=== PATIENT | male | born 1985 | race American Indian/Alaskan Native ===

== ENCOUNTER 2025-01-21 16:47 | Emergency (ER) | payer MEDICAID, SELFPAY ==
[2025-01-21 16:54] VITALS: BP 158/91; PULSE 64; RESP 19; TEMP 37.1; O2SAT 97; BMI 26.4
--- NOTE | 2025-01-21 17:27 | XR_ITS ---
Examination: Hand, right 3 views Technique: Hand AP, oblique, lateral 3 views Date and time of exam: January 21, 2025, 1545 hours INDICATIONS: Laceration to the third digit today, pain FINDINGS: Large soft tissue defect at the distal interphalangeal joint third digit No fracture No opaque foreign body IMPRESSION: No opaque foreign body
--- NOTE | 2025-01-21 17:27 | XR_ITS ---
Right hand third digit 2 views TECHNIQUE: AP lateral right hand third digit 2 views Date and time: January 21, 2025, 1746 hours INDICATIONS: Chainsaw injury to the hand today third digit pain. FINDINGS: Soft tissue defect third digit distally No fracture No opaque foreign body IMPRESSION: No opaque foreign body
--- NOTE | 2025-01-21 17:28 | PD.EDWOUND ---
ED Wound/Laceration-RME/HPI General Chief Complaint: Wound/Laceration Stated Complaint: FINGER LAC Time Seen by Provider: 01/21/25 17:26 Arrival date/time: 01/21/25 16:47 RME / HPI RME / HPI narrative: DR. ALLEN MAIN ED EVALUATION: 39-year-old male with no significant past medical history presents to the Emergency Department for evaluation of a right third finger laceration sustained accidentally while using a chainsaw. No other injuries noted. Allergic to morphine. Related Data Previous Rx's ?Medication ?Instructions ?Recorded ibuprofen 600 mg tablet 600 mg PO Q8H PRN pain #20 tabs 01/02/24 cephalexin 500 mg capsule 500 mg PO TID #21 caps 01/21/25 Allergies Allergy/AdvReac Type Severity Reaction Status Date / Time morphine Allergy Severe Hives Verified 01/02/24 14:16 Review of Systems Review of Systems Systems Reviewed: All systems reviewed, normal except as documented Past Medical History Past Medical History MUSCULOSKELETAL: Positive Musculoskeletal Disorders and Fractures (knee, wrist, fingers) OTHER HISTORY: Positive Chicken Pox Social History SMOKING STATUS: Never smoker SUBSTANCE USE: does not use ED Exam Narrative Physical exam: GENERAL APPEARANCE: Alert and oriented x4, in mild distress secondary to pain VITALS: All vitals were reviewed and the pulse ox is 97% on room air, which is normal according to my interpretation. HEENT: Normocephalic, atraumatic; pupils equal, round, reactive to light; EOMI; mucous membranes pink, moist; oropharynx clear NECK: Supple LUNGS: CTABL; no wheezes, no rales, no rhonchi HEART: Regular rate, regular rhythm; normal S1, S2; no murmurs ABDOMEN: non distended; normal BS; soft, no tenderness, no guarding, no rebound; no masses, no organomegaly, no hernia BACK: no CVA tenderness EXTREMITIES: Right 3rd finger with irregular, macerated laceration appearing as two separate but connected wounds. Rest of extremities normal. NEUROLOGIC: awake; alert and oriented x4; cranial nerves II-XII grossly intact; no focal sensory or motor deficits PSYCHIATRIC: appropriate mood and affect SKIN: warm, dry, normal color; no rashes Course Course Course Narrative: Patient care transferred to [facility] pending wound irrigation, in depth exam, wound repair, and final disposition Quality Measures none Orders Category Date Time Status XR finger RT min 2V Stat Exams 01/21/25 17:27 Completed XR hand comp RT min 3V Stat Exams 01/21/25 17:27 Completed Lidocaine 1% Vial 20 ml [Xylocaine 1% 20 ML] Med 01/21/25 17:28 Discontinued 10 ml INFL X1 ONE TET,DIP/PERT AC (Adult)-Tdap [Boostrix Adult (Tdap) Med 01/21/25 18:01 Discontinued Vacc] 0.5 ml IMI .ONCE ONE Reevaluation(s) Reevaluation #1: Patient signed out to Dragan Suarez, he will follow up on closing the wound and disposition. Time: 17:49 Vital Signs Vital signs: Vital Signs Temperature 98.7 F 01/21/25 16:54 Pulse Rate 64 01/21/25 16:54 Respiratory Rate 19 01/21/25 16:54 Blood Pressure 158/91 H 01/21/25 16:54 Pulse Oximetry (%) 97 01/21/25 16:54 Oxygen Delivery Method Room Air 01/21/25 16:54 Wound / Laceration MDM Narrative MDM Narrative:: Emili Salas am scribing for and in the presence of Dr. Allen. Patient data External records reviewed:: [facility] previous records Clinical information provided by:: patient Social determinants that could affect healthcare access:: none Patient has the following chronic illnesses:: Denies any PMHx, surgeries, or daily medications. Allergies to morphine. How is presenting disease/condition affected by chronic disease/condition?: no chronic disease Evaluation data The following diagnostics were reviewed and interpreted by me:: radiology exam(s) Lab and/or radiology exams considered but not ordered:: none Interpretation Summary: Pending at time of signout. Medications / Prescriptions Medications or Prescriptions considered but not ordered:: none Medication administrations:: Medication Administration History Discontinued Medications Diphtheria/Tetanus/Acell Pertussis (Diphth,Pertuss(Acell),Tet Vac 0.5 Ml Syr- Adult) 0.5 ml IMi .ONCE ONE Stop: 01/21/25 18:02 Last Admin: 01/21/25 18:25 Dose: 0.5 ml Documented By: PETAR Lidocaine HCl (Lidocaine Hcl 1% 20 Ml Vial) 10 ml INFL X1 ONE Stop: 01/21/25 17:29 Last Admin: 01/21/25 17:57 Dose: 10 ml Documented By: PETAR Comments: USED BY PROVIDER see above Consultations Consultation(s) initiated? (list below): No Diagnosis Wound Differential Diagnosis: other (Laceration with possible tendon involvement, open fracture, and neurovascular injury.) Most likely diagnosis given after review of the tests above:: See below under clinical impression Admission Indicated Admission indicated?: not indicated Admission Request Was there a request for admission?: No Disposition Plan Disposition Plan: Discharge (Patient signed out to Dragan Suarez, he will follow up on closing the wound and disposition likely discharge.) Discharge Attestation Discharge Attestation: The patient and all family members were given an opportunity to ask questions and understood the discharge instructions. Discharge instructions specifically effects, indications for sooner follow up or return to the emergency department, and the expected course of current diagnosis. Patient condition: Stable Discharge Plan Plan Patient Disposition: HOME (Self Care) Patient condition on transfer: Stable Prescriptions/Referrals Prescriptions/Med Rec: New cephalexin 500 mg capsule 500 mg PO TID Qty: 21 0RF No Action ibuprofen 600 mg tablet 600 mg PO Q8H PRN (Reason: pain) Qty: 20 0RF Referrals: Claire Lee PA-C ([facility]) [Primary Care Provider] - In 1 week ANTOLIN MONTANO [Referring Provider] - In 1 week Problem List Clinical Impression: Finger laceration, Avulsion of skin of finger Patient/Caregiver Discharge Instructions Education Materials: ED Laceration: All Closures Additional Instructions: Take the medications as prescribed until completely gone. Follow-up with Dr. Montano listed above. Keep the dressing clean and dry after the first 3 days change the dressing daily. Avoid any heavy work use of your hand until completely healed. Any signs of infection including redness pus or swelling return to the emergency room for reevaluation. Print Language: Micronesian Stand Alone Forms: Gabrielle Award Info., Work/School Release, Patient Portal Info Letter NAHOMI/ADDIE Supervising Physician YUKI Supervising Physician: Dragan Suarez ENP
[2025-01-21] MEDS: LIDOCAINE HCL 1% 20 ML VIAL 10 ML INFL (17:57)
[2025-01-21] MEDS: DIPHTH,PERTUSS(ACELL),TET VAC 0.5 ML SYR- ADULT IMi (18:25)
--- NOTE | 2025-01-21 18:27 | EDNOTE_ITS ---
<Statement entered by Yumiko Allen MD - 01/22/25 17:55> As co-signing physician, I was present and available for consult prn. I concur with the plan and care as documented by the midlevel provider. Emergency Room Addendum Addendum Narrative: Physical assessment right hand third digit medial to palmar aspect is completely degloved overlying the DIP, full range of motion against resistance flexion and extension cap refill in the tip is less than 2 seconds. Procedure: Laceration repair anesthesia: 1% lidocaine epinephrine 5 mL injected to the base of the medial lateral aspect of the third digit performing a digital block. Site was then assessed there is a small arterial bleeder that was tied off with 5-0 Vicryl without complication. Site was then trimmed of nonviable skin. Single suture of 3-0 Prolene to the medial side of the distal phalanx to approximate a corner of the degloved section which is approximately 1.5 x 1.5 cm. Site was again cleaned, active bleeding was confirmed stopped.. Surgicel was placed over the site bulky dressing. Patient tolerated the procedure well.
== END 2025-01-21 20:50 | disposition home or self-care (01) ==
PROVIDERS: Emergency Provider Emergency Medicine; PCP Nurse Practitioner Family
DX: S61.212A Laceration without foreign body of right middle finger without damage to nail, initial encounter (principal); W45.8XXA Other foreign body or object entering through skin, initial encounter
CPT/HCPCS: 12001; 73130; 73140; 90471; 90715; 99282; J3490

== ENCOUNTER → 2025-02-06 | Outpatient (CLI) | payer MEDICAID, SELFPAY | END | disposition home or self-care (01) | PROVIDERS: PCP Nurse Practitioner Family; Referring Provider Nurse Practitioner Family; Visit Provider Student in an Organized Health Care Education/Training Program | DX: S61.218A Laceration without foreign body of other finger without damage to nail, initial encounter (principal); X58.XXXA Exposure to other specified factors, initial encounter | CPT/HCPCS: 99213; A9270; G0463 ==

== ENCOUNTER → 2025-02-13 | Outpatient (CLI) | payer MEDICAID, SELFPAY | END | disposition home or self-care (01) | PROVIDERS: PCP Nurse Practitioner Family; Referring Provider Nurse Practitioner Family; Visit Provider Student in an Organized Health Care Education/Training Program | DX: S61.212A Laceration without foreign body of right middle finger without damage to nail, initial encounter (principal); X58.XXXA Exposure to other specified factors, initial encounter | CPT/HCPCS: 99212; A9270; G0463 ==

== ENCOUNTER → 2025-02-14 | Outpatient (CLI) | payer MEDICAID, SELFPAY ==
--- NOTE | 2025-02-14 09:56 | XR_ITS ---
Examination: Hand, right 3 views Technique: Hand AP, oblique, lateral 3 views Date and time of exam: February 14, 2025, 1018 hours, comparison January 21, 2025 INDICATIONS: Laceration to the right third digit 1 month ago. FINDINGS: No fracture. No opaque foreign body No cortical bone destruction IMPRESSION: No opaque foreign body
== END | disposition home or self-care (01) ==
LOC: CDIM 09:33
PROVIDERS: PCP Nurse Practitioner Family; Referring Provider Nurse Practitioner Gerontology; Visit Provider Nurse Practitioner Gerontology
DX: M79.641 Pain in right hand (principal)
CPT/HCPCS: 73130

== ENCOUNTER → 2025-02-20 | Outpatient (CLI) | payer MEDICAID, SELFPAY | END | disposition home or self-care (01) | LOC: SWHD 07:58 | PROVIDERS: PCP Nurse Practitioner Family; Referring Provider Nurse Practitioner Family; Visit Provider Student in an Organized Health Care Education/Training Program | DX: S61.212A Laceration without foreign body of right middle finger without damage to nail, initial encounter (principal); X58.XXXA Exposure to other specified factors, initial encounter | CPT/HCPCS: 99212; A9270; G0463 ==